=== PATIENT | male | born 1970 | race Caucasian/White ===

== ENCOUNTER 2018-05-30 20:26 | Emergency (ER) | payer MEDICAID ==
[~2018-05-30] VITALS: Ht 170.2 cm; Wt 81.2 kg
[2018-05-30 20:35] VITALS: Ht 170.2 cm; Wt 81.2 kg
[2018-05-30 21:40] LABS: BASOPHIL % 0.5 % (0-2); PLATELET COUNT 184 x10^3mcL (130-400); RED CELL DISTRIBUTION WIDTH 13.8 % (11.5-14.5)
[2018-05-30 21:58] LABS: CALCIUM 8.7 mg/dL (8.5-10.1); CHLORIDE SERUM 96 mmol/L (98-107); CREATININE SERUM 0.8 mg/dL (0.7-1.3); GFR1 > 60 mL/min; GLUCOSE SERUM 96 mg/dL (74-106); POTASSIUM SERUM 3.4 mmol/L (3.5-5.1); SODIUM SERUM 130 mmol/L (136-145)
[2018-05-30 22:02] LABS: ALKALINE PHOSPHATASE 72 U/L (46-116); ALT/SGPT 19 U/L (16-63); AMYLASE 38 U/L (25-115); AST/SGOT 18 U/L (15-37); BILIRUBIN TOTAL 0.83 mg/dL (0.20-1.00); LIPASE 121 IU/L (73-393); TOTAL PROTEIN, SERUM 7.1 g/dL (6.4-8.2)
[2018-05-31 00:21] LABS: microscopic required? NO
[2018-05-31 00:38] LABS: UA SPECIFIC GRAVITY <=1.005 (1.005-1.035); urine erythrocyte NEGATIVE (NEGATIVE)
[2018-05-31 02:00] VITALS: BP 132/77
== END 2018-05-31 02:00 | disposition home or self-care (01) ==
LOC: ED 20:26
PROVIDERS: Specialist
DX: G89.29 Other chronic pain (principal); R10.9 Unspecified abdominal pain; J45.909 Unspecified asthma, uncomplicated
CPT/HCPCS: J1885; J2270; J2405; J7030; Q0092; Q9966; Q9967

== ENCOUNTER 2020-09-20 01:55 | Emergency (ER) | payer OTHER ==
[~2020-09-20] VITALS: Ht 172.7 cm; Wt 77.1 kg
[2020-09-20 02:02] VITALS: Ht 172.7 cm; Wt 77.1 kg
[2020-09-20 02:43] LABS: BASOPHIL % 0.3 % (0-2); PLATELET COUNT 202 x10^3mcL (130-400)
[2020-09-20 02:46] LABS: CARBON DIOXIDE 30.4 mmol/L (21-32); CHLORIDE SERUM 104 mmol/L (98-107); CREATININE SERUM 0.9 mg/dL (0.7-1.3); GFR1 > 60 mL/min; GLUCOSE SERUM 130 mg/dL (74-106); POTASSIUM SERUM 3.9 mmol/L (3.5-5.1); SODIUM SERUM 139 mmol/L (136-145)
[2020-09-20 02:51] LABS: ALBUMIN 3.7 g/dL (3.4-5.0); ALKALINE PHOSPHATASE 86 U/L (46-116); ALT/SGPT 30 U/L (16-63); AST/SGOT 15 U/L (15-37); LIPASE 57 IU/L (73-393); TOTAL PROTEIN, SERUM 7.5 g/dL (6.4-8.2)
[2020-09-20] MEDS ORDERED: FEXMID7.5 M1 PO (03:49)
[2020-09-20] MEDS ORDERED: KADIAN PO (03:49)
[2020-09-20] MEDS ORDERED: PROAIR HFA8.5 GM INH (03:50)
[2020-09-20 08:11] VITALS: BP 151/67
== END 2020-09-20 08:11 | disposition short-term general hospital (02) ==
LOC: ED 01:55
PROVIDERS: Emergency Medicine
DX: K56.600 Partial intestinal obstruction, unspecified as to cause (principal); J45.909 Unspecified asthma, uncomplicated; Z90.49 Acquired absence of other specified parts of digestive tract; Z98.890 Other specified postprocedural states; Z20.828 Contact with and (suspected) exposure to other viral communicable diseases
CPT/HCPCS: J2270; J2405; J3010; J7030